=== PATIENT | female | born 1950 | race African-American/Black ===

== ENCOUNTER 2016-10-22 10:51 | Day surgery (SDC) | payer BC, OTHER ==
[2016-10-19 09:33] LABS: BASOPHILS 0.2 %; BASOPHILS ABSOLUTE 0.01 10/3/uL (0.0-0.16); EOSINOPHILS 2.3 %; EOSINOPHILS ABSOLUTE 0.12 10/3/uL (0.0-0.53); HEMATOCRIT 38.9 % (36.0-48.0); HEMOGLOBIN 13.1 g/dL (12.0-16.0); IMMATURE GRANULOCYTES 0.2 %; IMMATURE GRANULOCYTES ABSOLUTE 0.01 10/3/uL (0.0-0.11); LYMPHOCYTES 35.5 %; LYMPHOCYTES ABSOLUTE 1.84 10/3/uL (0.67-4.30); MEAN CORPUS HGB CONC 33.7 g/dL (32.0-36.0); MEAN CORPUSCULAR HEMOGLOB 30.4 pg (26.0-34.0); MEAN CORPUSCULAR VOLUME 90.3 fL (80-100); MEAN PLATELET VOLUME 9.6 fL (9.2-13.0); MONOCYTES 9.6 %; NEUTROPHILS 52.2 %; NEUTROPHILS ABSOLUTE 2.71 10/3/uL (2.02-8.40); PLATELET COUNT 241 10/3/uL (150-400); RBC DISTRIBUTION WIDTH 13.2 % (12.0-16.0); RED CELL COUNT 4.31 10/6/uL (4.0-5.6); WHITE BLOOD CELLS 5.2 10/3/uL (4.5-10.5)
[2016-10-19 09:34] LABS: MANUAL DIFF NO %
[2016-10-19 09:47] LABS: BUN (BLOOD UREA NITROGEN) 18 MG/DL (6-23); CALCIUM, SERUM 8.9 MG/DL (8.5-10.4); CHLORIDE, SERUM 110 MMOL/L (96-112); CO2 (CARBON DIOXIDE) 31 MMOL/L (24-34); CREATININE 0.98 MG/DL (0.55-1.02); GFR AFRICAN AMERICAN 70 ML/MIN (>=60); GFR NON AFRICAN AMERICAN 61 ML/MIN (>=60); GLUCOSE, SERUM 66 MG/DL (60-99); POTASSIUM, SERUM 3.9 MMOL/L (3.5-5.3); SODIUM, SERUM 146 MMOL/L (135-148)
--- NOTE | ~2016-10-22 | OP ---
Record Of Operation [facility] [address] [place]. [address] NAME: IGOR CERRATO : 52 STATUS : [facility] UNIT#: [id number] AGE: 66 ADM/REG DATE : 10/22/16 MR#: [id number] REPORT SERV DATE: 10/22/16 DICTATED BY: ROSA MARIA CARRILLO JR. DATE: 10/22/16 REPORT STATUS : Draft TRANSCRIBED BY: ELEAZAR DATE: 10/22/16 DATE OF PROCEDURE: 10/22/2016 SURGEON: Rosa Maria Carrillo M.D. INSURANCE CLAIMS ADJUSTER: Yani Escobar. PROCEDURE: Resection of subcutaneous tumor of the right posterior shoulder (7.5 cm). PREOPERATIVE DIAGNOSIS: Subcutaneous tumor of the right posterior shoulder. POSTOPERATIVE DIAGNOSIS: Subcutaneous tumor of the right posterior shoulder. ANESTHESIA: General. INDICATIONS: The patient presents with enlarging mass, soft tissues of the right posterior shoulder and resection is indicated for definitive diagnosis. FINDINGS: This appeared to be a fatty tumor located within the subcutaneous tissues. It measures 7.5 cm in greatest dimension. It was excised completely with final diagnosis deferred to permanent section. PROCEDURE: With adequate general anesthesia, the patient was placed in the lateral position. The right posterior shoulder was prepped and draped sterilely. Oblique incision was made overlying the mass. Incision deepened through the dermis. The mass was encountered and dissected free of surrounding tissues and submitted to Pathology. Bleeding was controlled with electrocautery. Then, a 10-Frisian flat Gilberto drain was left and brought in, was secured with nylon suture. The wound was closed with subcutaneous 3-0 Vicryl and subcuticular Monocryl. Sterile dressings were applied. The patient tolerated the procedure well and left the operating room in satisfactory condition. The estimated blood loss for the procedure was 10 mL. MATEO/ELEAZAR Rosa Maria Carrillo Jr., M.D. / [id number] CC: Rosa Maria Carrillo Jr., M.D.
== END 2016-10-22 19:06 | disposition home or self-care (01) ==
LOC: SDC 10:51
PROVIDERS: Specialist
PROC: 0JBD0ZZ Excision of Right Upper Arm Subcutaneous Tissue and Fascia, Open Approach (ICD-10-PCS; principal; 2016-10-22 12:45)
DX: D17.21 Benign lipomatous neoplasm of skin and subcutaneous tissue of right arm (principal); J45.909 Unspecified asthma, uncomplicated; E66.9 Obesity, unspecified; Z68.33 Body mass index [BMI] 33.0-33.9, adult; Z90.49 Acquired absence of other specified parts of digestive tract; Z98.890 Other specified postprocedural states; Z90.710 Acquired absence of both cervix and uterus; Z98.51 Tubal ligation status
CPT/HCPCS: 71020; 80048; 85025; 88304; 93005; A9270-GY; J0690; J2250; J2405; J2710; J3010